=== PATIENT | female | born 1985 | race Caucasian/White ===

== ENCOUNTER 2019-09-14 17:59 | Emergency (ER) | payer BC ==
--- NOTE | 2019-09-14 18:47 | EDM.PDOC ---
ED HPI GENERAL MEDICAL PROBLEM - General Chief Complaint: Behavioral/Psych Stated Complaint: ANXIETY Time Seen by Provider: 09/14/19 18:08 Source of Information: Reports: Patient History Limitations: Reports: No Limitations - History of Present Illness INITIAL COMMENTS - FREE TEXT/NARRATIVE: HISTORY AND PHYSICAL: History of present illness: Patient is a 34-year-old female who presents to the ED today for concern of medication refill for anxiety. Patient states she was seen in [place] on and was given 10 of Ativan and 45 of alprazolam. Patient states she has taken nearly all of the Ativan but does have 1 pill left and is only taken a few pills of the alprazolam. Patient states the Ativan does not seem to be helping her anxiety and was hoping to get a refill of Ativan. Patient states she has an appointment with her primary care provider on the of this month but is unsure with who and at what time. Patient states she hopes to get a prescription to tide her over until she has an appointment on the with her primary care provider. Patient denies any other symptoms or concerns. Patient denies fever, chills, chest pain, shortness of breath, or cough. Denies headache, neck stiff ness, change in vision, syncope, or near syncope. Denies nausea, vomiting, abdominal pain, diarrhea, constipation, or dysuria. Has not noted any blood in urine or stool. Patient has been eating and drinking appropriately. Review of systems: As per history of present illness and below otherwise all systems reviewed and negative. Past medical history: As per history of present illness and as reviewed below otherwise noncontributory. Surgical history: As per history of present illness and as reviewed below otherwise noncontributory. Social history: See social history for further information Family history: As per history of present illness and as reviewed below otherwise noncontributory. Physical exam: General: Patient is alert, oriented, and in no acute distress. Patient sitting comfortably on exam table and tearful on exam. HEENT: Atraumatic, normocephalic, pupils equal and reactive bilaterally, negative for conjunctival pallor or scleral icterus, mucous membranes moist, TMs normal bilaterally, throat clear, neck supple, nontender, trachea midline. No drooling or trismus noted. No meningeal signs. No hot potato voice noted. Lungs: Clear to auscultation, breath sounds equal bilaterally, chest nontender. Heart: S1S2, regular rate and rhythm without overt murmur Abdomen: Soft, nondistended, nontender. Negative for masses or hepatosplenomegaly. Negative for costovertebral tenderness. Pelvis: Stable nontender. Genitourinary: Deferred. Rectal: Deferred. Skin: Intact, warm, dry. No lesions or rashes noted. Extremities: Atraumatic, negative for cords or calf pain. Neurovascular unremarkable. Neuro: Awake, alert, oriented. Cranial nerves II through XII unremarkable. Cerebellum unremarkable. Motor and sensory unremarkable throughout. Exam nonfocal. Notes: Discussed with patient that it does not seem that Ativan is working. In the ED today she still has a full bottle of alprazolam available to her to use for anxiety. Discussed with patient that I will not be refilling these medications at this time as she already has a full RX of Xanax available to her, but I will place her on expedited follow-up list to be seen sooner by primary care. Patient was placed on expedited follow-up list for primary care. Discussed importance for follow-up with a primary care provider. Voices understanding and is agreeable to plan of care. Denies any further questions or concerns at this time. Diagnostics: None (offered labwork, EKG, and imaging to assess anxiety but patient declines) Therapeutics: None Prescription: None Impression: Anxiety Encounter for medication refill Plan: 1. You have been placed on the expedited follow up list with primary care. Follow-up with a primary care provider as discussed. 2. Use the Xanax and remaining Ativan you already have prescribed to you as directed. 3. Return to the ED as needed and as discussed. Definitive disposition and diagnosis as appropriate pending reevaluation and review of above. - Related Data Allergies Allergy/AdvReac Type Severity Reaction Status Date / Time hydrocodone Allergy Swelling Verified 09/14/19 18:10 tramadol Allergy Swelling Verified 09/14/19 18:10 Home Meds: Home Meds ALPRAZolam [Xanax] 0.5 mg PO ASDIRECTED PRN 09/14/19 [History] Albuterol Sulfate [Proair Hfa] 2 puff INH ASDIRECTED PRN 09/14/19 [History] LORazepam 0.5 mg PO ASDIRECTED PRN 09/14/19 [History] Topiramate [Topamax] 100 mg PO BID 09/14/19 [History] tiZANidine [Zanaflex] 4 mg PO BEDTIME 09/14/19 [History] Past Medical History - Infectious Disease History Infectious Disease History: Reports: Chicken Pox - Past Surgical History HEENT Surgical History: Reports: Adenoidectomy, Myringotomy w Tube(s), Tonsillectomy Female Surgical History: Reports: D&C, Hysterectomy Musculoskeletal Surgical History: Reports: Other (See Below) Other Musculoskeletal Surgeries/Procedures:: left knee Social & Family History - Family History Family Medical History: Noncontributory - Tobacco Use Smoking Status *Q: Never Smoker - Caffeine Use Caffeine Use: Reports: Soda - Recreational Drug Use Recreational Drug Use: No ED ROS GENERAL - Review of Systems Review Of Systems: Comprehensive ROS is negative, except as noted in HPI. ED EXAM, GENERAL - Physical Exam Exam: See Below (see dictation) Course - Vital Signs Last Recorded V/S: Last Vital Signs Temp 97.8 F 09/14/19 18:14 Pulse 96 09/14/19 18:14 Resp 20 09/14/19 18:14 BP 123/83 09/14/19 18:14 Pulse Ox 96 09/14/19 18:14 - Orders/Labs/Meds Orders: Active Orders 24 hr Category Date Time Status Communication Order [RC] STAT Care 09/14/19 18:42 Ordered Departure - Departure Time of Disposition: 18:44 Disposition: Home, Self-Care 01 Clinical Impression: Anxiety, Encounter for medication refill - Discharge Information Referrals: PCP,Not In Area [Primary Care Provider] - Additional Instructions: The following information is given to patients seen in the emergency department who are being discharged to home. This information is to outline your options for follow-up care. We provide all patients seen in our emergency department with a follow-up referral. The need for follow-up, as well as the timing and circumstances, are variable depending upon the specifics of your emergency department visit. If you don't have a primary care physician on staff, we will provide you with a referral. We always advise you to contact your personal physician following an emergency department visit to inform them of the circumstance of the visit and for follow-up with them and/or the need for any referrals to a consulting specialist. The emergency department will also refer you to a specialist when appropriate. This referral assures that you have the opportunity for follow-up care with a specialist. All of these measure are taken in an effort to provide you with optimal care, which includes your follow-up. Under all circumstances we always encourage you to contact your private physician who remains a resource for coordinating your care. When calling for follow-up care, please make the office aware that this follow-up is from your recent emergency room visit. If for any reason you are refused follow-up, please contact the [facility] Emergency Department at and asked to speak to the emergency department charge nurse. [facility] [address] [place] [id number] [facility] [address] [place] [id number] 1. You have been placed on the expedited follow up list with primary care. Follow-up with a primary care provider as discussed. 2. Use the Xanax and remaining Ativan you already have prescribed to you as directed. 3. Return to the ED as needed and as discussed. Sepsis Event Note - Evaluation Sepsis Screening Result: No Definite Risk - Focused Exam Vital Signs: Vital Signs Temp Pulse Resp BP Pulse Ox 09/14/19 18:14 97.8 F 96 20 123/83 96 Date Exam was Performed: 09/14/19 Time Exam was Performed: 18:42 - My Orders Last 24 Hours: My Active Orders 09/14/19 18:42 Communication Order [RC] STAT - Assessment/Plan Last 24 Hours: My Active Orders 09/14/19 18:42 Communication Order [RC] STAT
== END 2019-09-14 19:01 | disposition home or self-care (01) ==
LOC: MW.ED 17:59
DX: F41.9 Anxiety disorder, unspecified (principal); Z76.0 Encounter for issue of repeat prescription; Z88.5 Allergy status to narcotic agent; Z79.899 Other long term (current) drug therapy
CPT/HCPCS: 99283

== ENCOUNTER 2019-11-16 02:23 | Emergency (ER) | payer BC ==
[2019-11-16] MEDS ORDERED: Ondansetron 4 MG Tab.DIS PO ONE ×2 (02:43→03:44)
--- NOTE | 2019-11-16 03:48 | EDM.PDOC ---
ED HPI GENERAL MEDICAL PROBLEM - General Chief Complaint: Gastrointestinal Problem Stated Complaint: VOMITTING, STOMACH PAIN Time Seen by Provider: 11/16/19 02:31 Source of Information: Reports: Patient History Limitations: Reports: No Limitations - History of Present Illness INITIAL COMMENTS - FREE TEXT/NARRATIVE: 34-year-old female presents with 10-hour history of nausea vomiting and loose stools. Patient reports 7 rounds of nonbilious nonbloody emesis and 5 rounds of loose stools. Patient has a sick contact in her spouse who had similar symptoms about 5 days ago lasting several days. Patient denies any other significant symptoms. She did try to take Phenergan at home by mouth but she kept throwing it up but it did not seem be effective. Patient denies any fever , chills, chest pain, shortness of breath, confusion, weakness, numbness, vision changes. - Related Data Allergies Allergy/AdvReac Type Severity Reaction Status Date / Time hydrocodone Allergy Swelling Verified 11/16/19 02:40 tramadol Allergy Swelling Verified 11/16/19 02:40 Home Meds: Home Meds Topiramate [Topamax] 100 mg PO QAM 09/14/19 [History] tiZANidine [Zanaflex] 4 mg PO BEDTIME PRN 09/14/19 [History] Ondansetron [Ondansetron ODT] 4 mg PO Q6H PRN #10 tab.rapdis 11/16/19 [Rx] Promethazine HCl 12.5 mg RC Q6HR PRN #4 supp.rect 11/16/19 [Rx] Topiramate [Topamax] 200 mg PO QPM 11/16/19 [History] Past Medical History Respiratory History: Reports: Asthma Genitourinary History: Reports: None Neurological History: Reports: Migraines Psychiatric History: Reports: Anxiety - Infectious Disease History Infectious Disease History: Reports: Chicken Pox - Past Surgical History HEENT Surgical History: Reports: Adenoidectomy, Myringotomy w Tube(s), Tonsillectomy Respiratory Surgical History: Reports: None Female Surgical History: Reports: D&C, Hysterectomy Neurological Surgical History: Reports: None Musculoskeletal Surgical History: Reports: Other (See Below) Other Musculoskeletal Surgeries/Procedures:: left knee Social & Family History - Family History Family Medical History: Noncontributory - Tobacco Use Smoking Status *Q: Never Smoker Second Hand Smoke Exposure: No - Caffeine Use Caffeine Use: Reports: Soda - Recreational Drug Use Recreational Drug Use: No ED ROS GENERAL - Review of Systems Review Of Systems: Comprehensive ROS is negative, except as noted in HPI. ED EXAM, GENERAL - Physical Exam Exam: See Below Free Text/Narrative:: General: No acute distress. Comfortable. Heent: Examination revealed no pallor, no icterus, no lymphadenopathy. The patient has normal posterior pharynx, moist mucous membranes. Neck: Supple. No JVD. No rigidity. Heart: Normal rate. Reg rhythm. No murmurs appreciated. Lungs: Bilaterally clear to auscultation. No focal findings. Abdomen: Obese. Nontender, non-distended, soft, no CVA tenderness. Neuro: Pt is moving all four extremities. EOMI. PERRL. Normal speech. Skin: Exposed areas appeared normally perfused, warm, normal color with no meaningful rashes or lesions. Extremities: Peripheral examination revealed no pedal edema. Peripheral pulses were 2+. Course - Vital Signs Text/Narrative:: Much better after medication. Taking p.o. Will send home with rectal Phenergan. Return precautions for dehydration. Consistent with related vomiting secondary to the numerous stools and also the sick contact history. Last Recorded V/S: Last Vital Signs Temp 96.3 F L 11/16/19 02:29 Pulse 118 H 11/16/19 04:14 Resp 18 11/16/19 04:14 BP 125/82 11/16/19 04:14 Pulse Ox 95 11/16/19 04:14 - Orders/Labs/Meds Meds: Medications Discontinued Medications Generic Name Dose Route Start Last Admin Trade Name Jarred PRN Reason Stop Dose Admin Haloperidol Lactate 3 mg 11/16/19 04:32 11/16/19 04:43 Haldol IM 11/16/19 04:33 3 mg ONETIME ONE Administration Ondansetron HCl 4 mg 11/16/19 02:43 11/16/19 02:50 Zofran Odt PO 11/16/19 02:44 4 mg ONETIME ONE Administration Ondansetron HCl 4 mg 11/16/19 03:44 11/16/19 03:48 Zofran Odt PO 11/16/19 03:45 4 mg ONETIME ONE Administration Departure - Departure Time of Disposition: 05:00 Disposition: DC/[facility] 05 Condition: Good Clinical Impression: Vomiting - Discharge Information Prescriptions: Promethazine HCl 12.5 mg RC Q6HR PRN #4 supp.rect PRN Reason: Nausea/Vomiting Ondansetron [Ondansetron ODT] 4 mg PO Q6H PRN #10 tab.rapdis PRN Reason: Nausea/Vomiting Referrals: PCP,Not In Area [Ordering Only Provider] - Forms: ED Department Discharge Additional Instructions: Take your Phenergan as directed. Maintain hydration. Return to emergency if you are unable to keep down fluids. The following information is given to patients seen in the emergency department who are being discharged to home. This information is to outline your options for follow-up care. We provide all patients seen in our emergency department with a follow-up referral. The need for follow-up, as well as the timing and circumstances, are variable depending upon the specifics of your emergency department visit. If you don't have a primary care physician on staff, we will provide you with a referral. We always advise you to contact your personal physician following an emergency department visit to inform them of the circumstance of the visit and for follow-up with them and/or the need for any referrals to a consulting specialist. The emergency department will also refer you to a specialist when appropriate. This referral assures that you have the opportunity for follow-up care with a specialist. All of these measure are taken in an effort to provide you with optimal care, which includes your follow-up. Under all circumstances we always encourage you to contact your private physician who remains a resource for coordinating your care. When calling for follow-up care, please make the office aware that this follow-up is from your recent emergency room visit. If for any reason you are refused follow-up, please contact the [facility] Emergency Department at and asked to speak to the emergency department charge nurse. Sepsis Event Note - Evaluation Sepsis Screening Result: No Definite Risk - Focused Exam Vital Signs: Vital Signs Temp Pulse Resp BP Pulse Ox 11/16/19 04:14 118 H 18 125/82 95 11/16/19 02:29 96.3 F L 122 H 19 149/105 H 96 Date Exam was Performed: 11/16/19 Time Exam was Performed: 05:16
[2019-11-16] MEDS ORDERED: Haloperidol Lactate 5 MG/ML SDV IM ONE (04:32)
== END 2019-11-16 05:38 | disposition home or self-care (01) ==
LOC: MW.ED 02:23
DX: R11.2 Nausea with vomiting, unspecified (principal); J45.909 Unspecified asthma, uncomplicated; G43.909 Migraine, unspecified, not intractable, without status migrainosus; Z79.899 Other long term (current) drug therapy; Z88.5 Allergy status to narcotic agent
CPT/HCPCS: 96372; 99284; A9270; J1630

== ENCOUNTER 2019-11-23 13:24 | Emergency (ER) | payer BC ==
--- NOTE | 2019-11-23 13:50 | EDM.PDOC ---
ED HPI GENERAL MEDICAL PROBLEM - General Chief Complaint: General Stated Complaint: FELL HIT HEAD AND SHOULDER Time Seen by Provider: 11/23/19 13:50 Source of Information: Reports: Patient History Limitations: Reports: No Limitations - History of Present Illness INITIAL COMMENTS - FREE TEXT/NARRATIVE: HISTORY AND PHYSICAL: History of present illness: Patient is a 34-year-old female presents to the ED with complaint of head injury. Patient states she fell off her horse as she was trying to mount him just prior to arrival to the ED. Patient states she fell on her left side landing on her left shoulder and hitting her head. She states she did not lose consciousness but hit hard enough that her glasses flew off. She is complaining of pain on the left side of her head, left neck, and left shoulder. She denies numbness or tingling on to her upper extremities. She denies vomiting but states she has been dizzy. Review of systems: As per history of present illness and below otherwise all systems reviewed and negative. Past medical history: As per history of present illness and as reviewed below otherwise noncontributory. Surgical history: As per history of present illness and as reviewed below otherwise noncontributory. Social history: No reported history of drug or alcohol abuse. Family history: As per history of present illness and as reviewed below otherwise noncontributory. Physical exam: General: Patient sitting comfortably in no acute distress and nontoxic appearing HEENT: Atraumatic, normocephalic, pupils reactive, negative for conjunctival pallor or scleral icterus, mucous membranes moist, throat clear, neck supple, nontender, trachea midline. No meningeal signs. Lungs: Clear to auscultation, breath sounds equal bilaterally, chest nontender. Heart: S1S2, regular, negative for clicks, rubs, or overt murmur. Abdomen: Soft, nondistended, nontender. Negative for masses or hepatosplenomegaly. Negative for costovertebral tenderness. No rigidity, rebound , guarding. Pelvis: Stable nontender. Genitourinary: Deferred. Rectal: Deferred. Spine: No vertebral tenderness or step offs to palpation. Left cervical paraspinal tenderness to palpation. Extremities: Atraumatic, negative for cords or calf pain. Neurovascular unremarkable. Neuro: Awake, alert, oriented. Cranial nerves II through XII unremarkable. Cerebellum unremarkable. Motor and sensory unremarkable throughout. Exam nonfocal. Notes: Diagnostics: Head CT w/o, cervical CT w/o, left shoulder x-ray Therapeutics: Toradol 60mg IM Left arm sling Prescriptions: none Impression: Head injury, left shoulder pain Plan: 1. Ice and motrin or tylenol as needed 2. Follow up with primary care provider, please call the number provided to schedule an appointment 3. Return to ED as needed as discussed Definitive disposition and diagnosis as appropriate pending reevaluation and review of above. left shouler Pain Score (Numeric/FACES): 9 - Related Data Allergies Allergy/AdvReac Type Severity Reaction Status Date / Time hydrocodone Allergy Swelling Verified 11/16/19 02:40 tramadol Allergy Swelling Verified 11/16/19 02:40 Home Meds: Home Meds Topiramate [Topamax] 100 mg PO QAM 09/14/19 [History] tiZANidine [Zanaflex] 4 mg PO BEDTIME PRN 09/14/19 [History] Topiramate [Topamax] 200 mg PO QPM 11/16/19 [History] DULoxetine HCl [Cymbalta] 11/23/19 [History] Esomeprazole Magnesium [Nexium] 11/23/19 [History] Past Medical History Respiratory History: Reports: Asthma Genitourinary History: Reports: None Neurological History: Reports: Migraines Psychiatric History: Reports: Anxiety - Infectious Disease History Infectious Disease History: Reports: Chicken Pox - Past Surgical History HEENT Surgical History: Reports: Adenoidectomy, Myringotomy w Tube(s), Tonsillectomy Respiratory Surgical History: Reports: None Female Surgical History: Reports: D&C, Hysterectomy Neurological Surgical History: Reports: None Musculoskeletal Surgical History: Reports: Other (See Below) Other Musculoskeletal Surgeries/Procedures:: left knee Social & Family History - Family History Family Medical History: Noncontributory - Tobacco Use Smoking Status *Q: Never Smoker - Caffeine Use Caffeine Use: Reports: Soda - Recreational Drug Use Recreational Drug Use: No ED ROS GENERAL - Review of Systems Review Of Systems: Comprehensive ROS is negative, except as noted in HPI. ED EXAM, GENERAL - Physical Exam Exam: See Below (see dictation) Course - Vital Signs Last Recorded V/S: Last Vital Signs Temp 98.4 F 11/23/19 13:42 Pulse 100 11/23/19 13:42 Resp 18 03/19/20 13:42 BP 141/86 H 11/23/19 13:42 Pulse Ox 97 11/23/19 13:42 - Orders/Labs/Meds Orders: Active Orders 24 hr Category Date Time Status Ketorolac [Toradol] Med 11/23/19 14:55 Once 60 mg IM ONETIME ONE DME for Discharge [COMM] Stat Oth 11/23/19 14:55 Ordered Medication Orders Ketorolac Tromethamine (Toradol) 60 mg IM ONETIME ONE Stop: 11/23/19 14:56 Meds: Medications Generic Name Dose Route Start Last Admin Trade Name Jarred PRN Reason Stop Dose Admin Ketorolac Tromethamine 60 mg 11/23/19 14:55 Toradol IM 11/23/19 14:56 ONETIME ONE Departure - Departure Time of Disposition: 14:51 Disposition: Home, Self-Care 01 Condition: Good Clinical Impression: Head injury, Shoulder pain, left - Discharge Information Referrals: Alma Zuniga PA [Primary Care Provider] - Forms: ED Department Discharge Additional Instructions: The following information is given to patients seen in the emergency department who are being discharged to home. This information is to outline your options for follow-up care. We provide all patients seen in our emergency department with a follow-up referral. The need for follow-up, as well as the timing and circumstances, are variable depending upon the specifics of your emergency department visit. If you don't have a primary care physician on staff, we will provide you with a referral. We always advise you to contact your personal physician following an emergency department visit to inform them of the circumstance of the visit and for follow-up with them and/or the need for any referrals to a consulting specialist. The emergency department will also refer you to a specialist when appropriate. This referral assures that you have the opportunity for follow-up care with a specialist. All of these measure are taken in an effort to provide you with optimal care, which includes your follow-up. Under all circumstances we always encourage you to contact your private physician who remains a resource for coordinating your care. When calling for follow-up care, please make the office aware that this follow-up is from your recent emergency room visit. If for any reason you are refused follow-up, please contact the [facility] Emergency Department at and asked to speak to the emergency department charge nurse. [facility]ORA[facility] [address] [place] [address] [facility] [address] [place] [address] 1. Ice and motrin or tylenol as needed 2. Follow up with primary care provider, please call the number provided to schedule an appointment 3. Return to ED as needed as discussed Sepsis Event Note - Evaluation Sepsis Screening Result: No Definite Risk - Focused Exam Vital Signs: Vital Signs Temp Pulse Resp BP Pulse Ox 11/23/19 13:42 98.4 F 100 18 141/86 H 97 Date Exam was Performed: 11/23/19 Time Exam was Performed: 14:56 - My Orders Last 24 Hours: My Active Orders 11/23/19 14:55 Ketorolac [Toradol] 60 mg IM ONETIME ONE DME for Discharge [COMM] Stat - Assessment/Plan Last 24 Hours: My Active Orders 11/23/19 14:55 Ketorolac [Toradol] 60 mg IM ONETIME ONE DME for Discharge [COMM] Stat
--- NOTE | 2019-11-23 14:39 | CT ---
Head CT Technique: Multiple axial sections through the brain were obtained. Intravenous contrast was not utilized. Comparison: No prior intracranial imaging is available. Findings: Ventricles along with basal cisterns and sulci over the convexities are within normal limits for the patient's age. No abnormal parenchymal densities are seen. No evidence of intracranial hemorrhage. No midline shift or mass effect is seen. No acute calvarial abnormality is appreciated on bone window settings. Visualized paranasal sinuses and mastoid sinuses are clear. Impression: 1. Nothing acute is appreciated on noncontrast head CT exam. Diagnostic code #1 Study was dictated in MDT
--- NOTE | 2019-11-23 14:49 | CT ---
CT cervical spine Technique: Multiple axial sections were obtained from above C1 inferiorly to the mid T4 level. Reconstructed sagittal and coronal images were reviewed. Findings: Vertebral body heights and disc spaces are preserved. Vertebral bodies and posterior arches are intact. No subluxation or fracture is appreciated. No bony central or bony neural foraminal stenosis is seen. Impression: 1. Nothing acute is appreciated on CT study of the cervical spine. Diagnostic code #1 Study was dictated in MDT
--- NOTE | 2019-11-23 14:49 | CR ---
Left shoulder: 3 views left shoulder were obtained. Comparison: No previous left shoulder study is available. Glenohumeral joint and acromioclavicular joint appears unremarkable. No fracture, dislocation or other bony abnormality is identified. Impression: 1. No abnormality is identified on 3 view left shoulder study. Diagnostic code #1 Study was dictated in MDT
[2019-11-23] MEDS ORDERED: Ketorolac 60 MG/2 ML SDV IM ONE (14:55)
== END 2019-11-23 15:20 | disposition home or self-care (01) ==
LOC: MW.ED 13:24
DX: S09.90XA Unspecified injury of head, initial encounter (principal); M25.512 Pain in left shoulder; F41.9 Anxiety disorder, unspecified; J45.909 Unspecified asthma, uncomplicated; Z88.5 Allergy status to narcotic agent; Z79.899 Other long term (current) drug therapy; V80.010A Animal-rider injured by fall from or being thrown from horse in noncollision accident, initial encounter
CPT/HCPCS: 70450; 72125; 73030; 96372; 99284; J1885

== ENCOUNTER 2019-11-28 10:52 | Emergency (ER) | payer BC ==
[2019-11-28] MEDS ORDERED: Sodium Chloride 0.9% 1,000 ML IV ONE (11:14)
[2019-11-28] MEDS ORDERED: Ondansetron 4 MG/2 ML SDV IVPUSH ONE (11:14)
[2019-11-28] MEDS ORDERED: Metoclopramide 10 MG/2 ML SDV IV ONE (11:14)
[2019-11-28] MEDS ORDERED: diphenhydrAMINE 50 MG/ML SDV IVPUSH ONE (11:14)
[2019-11-28] MEDS ORDERED: traMADol 50 MG Tab PO ONE (11:23)
--- NOTE | 2019-11-28 11:27 | EDM.PDOC ---
ED HPI GENERAL MEDICAL PROBLEM - General Chief Complaint: Headache Stated Complaint: MIGRAINE Time Seen by Provider: 11/28/19 10:55 Source of Information: Reports: Patient History Limitations: Reports: No Limitations - History of Present Illness INITIAL COMMENTS - FREE TEXT/NARRATIVE: PEDS HISTORY AND PHYSICAL: History of present illness: Patient is a 34-year-old female who presents to the ED today with concern of a migraine headache since this morning. Patient states she has a history of migraines and has been receiving Botox injections for them. Patient states this morning she started having a migraine and has taken 2 Maxalt, 800 mg ibuprofen, 25mg Benadryl, and Phenergan and states she is only had mild relief of her migraine. Patient states that the migraine today is typical of her usual migraines and is behind her eyes and throbbing with sensitivity to the light. Patient denies any head injury or trauma. Patient states she has a history of total hysterectomy. Patient denies fever, chills, chest pain, shortness of breath, or cough. Denies neck stiff ness, change in vision, syncope, or near syncope. Denies nausea, vomiting, abdominal pain, diarrhea, constipation, or dysuria. Has not noted any blood in urine or stool. Patient has been eating and drinking appropriately. Review of systems: As per history of present illness and below otherwise all systems reviewed and negative. Past medical history: As per history of present illness and as reviewed below otherwise noncontributory. Surgical history: As per history of present illness and as reviewed below otherwise noncontributory. Social history: No reported history of drug or alcohol abuse. Family history: As per history of present illness and as reviewed below otherwise noncontributory. Physical exam: General: Patient is alert, oriented, and in no acute distress. Nontoxic and nonfocal. Patient laying comfortably on exam table. HEENT: Atraumatic, normocephalic, pupils reactive, negative for conjunctival pallor or scleral icterus, mucous membranes moist, throat clear, neck supple, nontender, trachea midline. TMs normal bilaterally, no cervical adenopathy or nuchal rigidity. Lungs: Clear to auscultation, breath sounds equal bilaterally, chest nontender. Heart: S1S2, regular rate and rhythm, no overt murmurs Abdomen: Soft, nondistended, nontender. Negative for masses or hepatosplenomegaly. Normal abdominal bowel sounds. Pelvis: Stable nontender. Genitourinary: Deferred. Rectal: Deferred. Extremities: Atraumatic, full range of motion without defects or deficits. Neurovascular unremarkable. Neuro: Awake, alert, and age appropriate. Cranial nerves II through XII unremarkable. Cerebellum unremarkable. Motor and sensory unremarkable throughout. Exam nonfocal. Skin: Normal turgor, no overt rash or lesions Notes: Patient expresses improvement of symptoms today in the ED. Discussed the importance of follow up with a primary care provider. Voices understanding and is agreeable to plan of care. Denies any further questions or concerns at this time. Diagnostics: None Therapeutics: Tramadol, NS, Benadryl, Reglan, Zofran Prescription: None Impression: Migraine headache, improved Plan: 1. You can take your at home migraine medications as prescribed to you. You can also alternate ibuprofen and Tylenol as directed for pain and discomfort. 2. Follow-up with a primary care provider as discussed. Return to the ED as needed and as discussed. 3. The medication you received today does cause drowsiness, so do not drive for the remaining day. Definitive disposition and diagnosis as appropriate pending reevaluation and review of above. headache Pain Score (Numeric/FACES): 9 - Related Data Allergies Allergy/AdvReac Type Severity Reaction Status Date / Time hydrocodone Allergy Swelling Verified 11/28/19 11:02 tramadol Allergy Swelling Verified 11/28/19 11:02 Home Meds: Home Meds Topiramate [Topamax] 100 mg PO QAM 09/14/19 [History] tiZANidine [Zanaflex] 4 mg PO BEDTIME PRN 09/14/19 [History] Topiramate [Topamax] 200 mg PO QPM 11/16/19 [History] DULoxetine HCl [Cymbalta] 60 mg PO DAILY 11/23/19 [History] Esomeprazole Magnesium [Nexium] 20 mg PO DAILY 11/23/19 [History] Rizatriptan Benzoate [Rizatriptan] 10 mg PO DAILY 11/28/19 [History] Past Medical History Respiratory History: Reports: Asthma Genitourinary History: Reports: None Neurological History: Reports: Migraines Psychiatric History: Reports: Anxiety - Infectious Disease History Infectious Disease History: Reports: Chicken Pox - Past Surgical History HEENT Surgical History: Reports: Adenoidectomy, Myringotomy w Tube(s), Tonsillectomy Respiratory Surgical History: Reports: None Female Surgical History: Reports: D&C, Hysterectomy Neurological Surgical History: Reports: None Musculoskeletal Surgical History: Reports: Other (See Below) Other Musculoskeletal Surgeries/Procedures:: left knee Social & Family History - Family History Family Medical History: Noncontributory - Tobacco Use Smoking Status *Q: Never Smoker - Caffeine Use Caffeine Use: Reports: Soda - Recreational Drug Use Recreational Drug Use: No ED ROS GENERAL - Review of Systems Review Of Systems: Comprehensive ROS is negative, except as noted in HPI. ED EXAM, GENERAL - Physical Exam Exam: See Below (see dictation) Course - Vital Signs Last Recorded V/S: Last Vital Signs Temp 97.2 F 11/28/19 11:04 Pulse 71 11/28/19 11:38 Resp 18 11/28/19 11:38 BP 142/90 H 11/28/19 11:04 Pulse Ox 98 11/28/19 11:38 - Orders/Labs/Meds Meds: Medications Discontinued Medications Generic Name Dose Route Start Last Admin Trade Name Jarred PRN Reason Stop Dose Admin Diphenhydramine HCl 25 mg 11/28/19 11:14 11/28/19 11:32 Benadryl IVPUSH 11/28/19 11:15 25 mg ONETIME ONE Administration Sodium Chloride 1,000 mls @ 999 mls/hr 11/28/19 11:14 11/28/19 11:31 Normal Saline IV 11/28/19 12:14 999 mls/hr STAT ONE Administration Metoclopramide HCl 10 mg 11/28/19 11:14 11/28/19 11:33 Reglan IV 11/28/19 11:15 10 mg ONETIME ONE Administration Ondansetron HCl 4 mg 11/28/19 11:14 11/28/19 11:32 Zofran IVPUSH 11/28/19 11:15 4 mg ONETIME ONE Administration Tramadol HCl 50 mg 11/28/19 11:23 11/28/19 11:35 Ultram PO 11/28/19 11:24 50 mg ONETIME ONE Administration Departure - Departure Time of Disposition: 12:56 Disposition: Home, Self-Care 01 Clinical Impression: Migraine - Discharge Information Referrals: Alma Zuniga PA [Primary Care Provider] - Forms: ED Department Discharge Additional Instructions: The following information is given to patients seen in the emergency department who are being discharged to home. This information is to outline your options for follow-up care. We provide all patients seen in our emergency department with a follow-up referral. The need for follow-up, as well as the timing and circumstances, are variable depending upon the specifics of your emergency department visit. If you don't have a primary care physician on staff, we will provide you with a referral. We always advise you to contact your personal physician following an emergency department visit to inform them of the circumstance of the visit and for follow-up with them and/or the need for any referrals to a consulting specialist. The emergency department will also refer you to a specialist when appropriate. This referral assures that you have the opportunity for follow-up care with a specialist. All of these measure are taken in an effort to provide you with optimal care, which includes your follow-up. Under all circumstances we always encourage you to contact your private physician who remains a resource for coordinating your care. When calling for follow-up care, please make the office aware that this follow-up is from your recent emergency room visit. If for any reason you are refused follow-up, please contact the [facility] Emergency Department at and asked to speak to the emergency department charge nurse. [facility] [address] [place] [id number] [place] [address] 1. You can take your at home migraine medications as prescribed to you. You can also alternate ibuprofen and Tylenol as directed for pain and discomfort. 2. Follow-up with a primary care provider as discussed. Return to the ED as needed and as discussed. 3. The medication you received today does cause drowsiness, so do not drive for the remaining day. Sepsis Event Note - Evaluation Sepsis Screening Result: No Definite Risk - Focused Exam Vital Signs: Vital Signs Temp Pulse Resp BP Pulse Ox 11/28/19 11:38 71 18 98 11/28/19 11:04 97.2 F 85 18 142/90 H 98 Date Exam was Performed: 11/28/19 Time Exam was Performed: 12:56
== END 2019-11-28 13:17 | disposition home or self-care (01) ==
LOC: MW.ED 10:52
DX: G43.909 Migraine, unspecified, not intractable, without status migrainosus (principal)
CPT/HCPCS: 96361; 96374; 96375; 99283; A9270; J1200; J2405; J2765; J7030

== ENCOUNTER 2020-02-07 09:00 | Emergency (ER) | payer BC ==
[2020-02-07] MEDS ORDERED: methylPREDNISolone Sodium Succinate 125 MG/2 ML SDV IVPUSH ONE (09:29)
[2020-02-07] MEDS ORDERED: Morphine 4 MG/ML Syringe IVPUSH ONE (09:29)
[2020-02-07] MEDS ORDERED: Sodium Chloride 0.9% 1,000 ML IV ONE (09:29)
[2020-02-07] MEDS ORDERED: Ketorolac 15 MG/ML SDV IVPUSH ONE (09:29)
[2020-02-07] MEDS ORDERED: Acetaminophen 325 MG Tab PO ONE (09:29)
--- NOTE | 2020-02-07 09:35 | EDM.PDOC ---
ED [facility] GENERAL MEDICAL PROBLEM - General Chief Complaint: ENT Problem Stated Complaint: SWOLLEN LYMPH NODES IN NECK Time Seen by Provider: 02/07/20 09:01 - History of Present Illness INITIAL COMMENTS - FREE TEXT/NARRATIVE: HISTORY AND PHYSICAL: History of present illness: This 34-year-old female with a past medical history of BMI greater than 43 presents emergency department complaining of severe sore throat, lymphadenopathy in the neck causing pain with range of motion, and pain with swallowing. She reports that she went to an outside doctor and was seen and had a strep throat test which was negative. She was not started on antibiotics or steroids. She is concerned because she is having severe pain in her neck and it hurts with any range of motion. This is abnormal for her. Some slight subjective fevers otherwise normal. No difficulty controlling secretions. No other associated signs or symptoms. No other modifying, aggravating or alleviating factors. Review of systems: A 10-point review of systems, other than pertinent positives and negatives as stated per HPI, is otherwise negative. Past medical history: As per history of present illness and as reviewed below otherwise noncontributory. Surgical history: As per history of present illness and as reviewed below otherwise noncontributory. Social history: No reported history of drug or alcohol abuse. Family history: As per history of present illness and as reviewed below otherwise noncontributory. Physical exam: VITAL SIGNS: Reviewed. GENERAL: Appears to be in acute pain. Mild distress. HEAD: No signs of head trauma. EYES: Pupils are equal. Extraocular motions intact. EARS: Hearing grossly intact. MOUTH: Bilateral lymphadenopathy, some exudates. NECK: Bilateral lymphadenopathy up and down the neck. Some posterior adenopathy. No JVD. The patient does have a small rash on her chest. Pain with range of motion especially from side to side because it causes the lymphadenopathy to be painful. CHEST: Chest with clear breath sounds bilaterally. No wheezes, rales, or rhonchi. CARDIAC: Tachycardia. Regular rhythm. I do not appreciate a murmur. VASCULAR: Peripheral pulses normal and equal in all extremities. ABDOMEN: Soft, without detectable tenderness. No sign of distention. No rebound or guarding, and no masses palpated. MUSCULOSKELETAL: Good range of motion of all major joints. Extremities without clubbing, cyanosis or edema. NEUROLOGIC EXAM: Alert and oriented x 3. No focal sensory or motor deficits. Speech normal. Follows commands. PSYCHIATRIC: Mood normal. SKIN: Small petechial erythematous base rash. No purpura. Non-blanching. Initial Differential Diagnosis & Plan: Strep pharyngitis, mononucleosis, retropharyngeal abscess, leukemia, lymphoma, viral pharyngitis, adenitis I will obtain labs to include CBC, complete metabolic panel, Rose Marie-Leiva virus panel, mono spot test, give pain control and relief, treat her tachycardia with IV fluids and antipyretics. I do not feel a throat culture is warranted. If the patient is not feeling better after some therapy here I will obtain a CT of the neck soft tissue to rule out retropharyngeal abscess. Definitive disposition and diagnosis as appropriate pending reevaluation and review of above. Left Neck Pain Score (Numeric/FACES): 10 - Related Data Allergies Allergy/AdvReac Type Severity Reaction Status Date / Time hydrocodone Allergy Swelling Verified 02/07/20 09:10 tramadol Allergy Swelling Verified 02/07/20 09:10 Home Meds: Home Meds Topiramate [Topamax] 100 mg PO QAM 09/14/19 [History] tiZANidine [Zanaflex] 4 mg PO BEDTIME PRN 09/14/19 [History] Topiramate [Topamax] 200 mg PO QPM 11/16/19 [History] DULoxetine HCl [Cymbalta] 60 mg PO DAILY 11/23/19 [History] Esomeprazole Magnesium [Nexium] 20 mg PO DAILY 11/23/19 [History] Rizatriptan Benzoate [Rizatriptan] 10 mg PO DAILY 11/28/19 [History] Acetaminophen [Tylenol Extra Strength] 1,000 mg PO Q6HR PRN #60 tablet 02/07/20 [Rx] Acetaminophen [Tylenol Extra Strength] 1,000 mg PO Q6HR PRN #60 tablet 02/07/20 [Rx] Cefdinir [Omnicef] 300 mg PO BID #14 cap 02/07/20 [Rx] Diclofenac Potassium [Cataflam] 50 mg PO BID #60 tab 02/07/20 [Rx] Doxycycline [Vibramycin] 100 mg PO BID 7 Days #14 tab 02/07/20 [Rx] Ibuprofen [Motrin] 600 mg PO Q6H PRN #30 tab 02/07/20 [Rx] Omeprazole 40 mg PO QPM #30 capsule. 02/07/20 [Rx] Omeprazole 40 mg PO QPM #30 capsule. 02/07/20 [Rx] cephALEXin [Keflex] 500 mg PO QID 02/07/20 [History] predniSONE [Prednisone] 50 mg PO DAILY 5 Days #5 tablet 02/07/20 [Rx] Past Medical History Respiratory History: Reports: Asthma Genitourinary History: Reports: None Neurological History: Reports: Migraines Psychiatric History: Reports: Anxiety - Infectious Disease History Infectious Disease History: Reports: Chicken Pox - Past Surgical History HEENT Surgical History: Reports: Adenoidectomy, Myringotomy w Tube(s), Tonsillectomy Respiratory Surgical History: Reports: None Female Surgical History: Reports: D&C, Hysterectomy Neurological Surgical History: Reports: None Musculoskeletal Surgical History: Reports: Other (See Below) Other Musculoskeletal Surgeries/Procedures:: left knee Social & Family History - Family History Family Medical History: Noncontributory - Tobacco Use Smoking Status *Q: Never Smoker - Caffeine Use Caffeine Use: Reports: Soda - Recreational Drug Use Recreational Drug Use: No ED ROS ENT - Review of Systems Review Of Systems: Unable To Obtain (noted) Reason Not Obtained: noted ED EXAM, ENT - Physical Exam Exam: See Below (noted) Course - Vital Signs Last Recorded V/S: Last Vital Signs Temp 98.3 F 02/07/20 09:11 Pulse 74 02/07/20 10:48 Resp 17 02/07/20 10:48 BP 114/70 02/07/20 10:48 Pulse Ox 97 02/07/20 10:48 - Orders/Labs/Meds Labs: Laboratory Tests 02/07/20 02/07/20 02/07/20 Range/Units 09:50 09:50 09:50 WBC 10.04 (4.0-11.0) K/uL RBC 4.45 (4.30-5.90) M/uL Hgb 12.4 (12.0-16.0) g/dL Hct 38.1 (36.0-46.0) % MCV 85.6 (80.0-98.0) fL MCH 27.9 (27.0-32.0) pg MCHC 32.5 (31.0-37.0) g/dL RDW Std Deviation 41.0 (28.0-62.0) fl RDW Coeff of Harjinder 13 (11.0-15.0) % Plt Count 223 (150-400) K/uL MPV 10.30 (7.40-12.00) fL Neut % (Auto) 72.7 (48.0-80.0) % Lymph % (Auto) 20.0 (16.0-40.0) % [place] % (Auto) 5.7 (0.0-15.0) % Eos % (Auto) 1.4 (0.0-7.0) % Baso % (Auto) 0.2 (0.0-1.5) % Neut # (Auto) 7.3 H (1.4-5.7) K/uL Lymph # (Auto) 2.0 (0.6-2.4) K/uL [place] # (Auto) 0.6 (0.0-0.8) K/uL Eos # (Auto) 0.1 (0.0-0.7) K/uL Baso # (Auto) 0.0 (0.0-0.1) K/uL Nucleated RBC % 0.0 /100WBC Nucleated RBCs # 0 K/uL Sodium 139 (136-145) mmol/L Potassium 3.7 (3.5-5.1) mmol/L Chloride 106 (98-107) mmol/L Carbon Dioxide 22.9 (21.0-32.0) mmol/L BUN 8 (7.0-18.0) mg/dL Creatinine 0.8 (0.6-1.0) mg/dL Est Cr Clr Drug Dosing 79.11 mL/min Estimated GFR (MDRD) > 60.0 ml/min Glucose 95 (74-106) mg/dL Calcium 8.8 (8.5-10.1) mg/dL Total Bilirubin 0.4 (0.2-1.0) mg/dL AST 19 (15-37) IU/L ALT 27 (14-63) IU/L Alkaline Phosphatase 104 (46-116) U/L Total Protein 7.2 (6.4-8.2) g/dL Albumin 3.2 L (3.4-5.0) g/dL Globulin 4.0 (2.6-4.0) g/dL Albumin/Globulin Ratio 0.8 L (0.9-1.6) Monoscreen NEGATIVE (NEG) Meds: Medications Discontinued Medications Generic Name Dose Route Start Last Admin Trade Name Jarred PRN Reason Stop Dose Admin Acetaminophen 975 mg 02/07/20 09:29 02/07/20 09:41 Tylenol PO 02/07/20 09:30 975 mg NOW ONE Administration Sodium Chloride 1,000 mls @ 2,000 mls/hr 02/07/20 09:29 02/07/20 09:41 Normal Saline IV 02/07/20 09:58 2,000 mls/hr .Bolus ONE Administration Iopamidol 80 ml 02/07/20 11:53 02/07/20 11:54 Isovue Multipack-370 (76%) IVPUSH 02/07/20 11:54 80 ml ONETIME STA Administration Ketorolac Tromethamine 15 mg 02/07/20 09:29 02/07/20 09:41 Toradol IVPUSH 02/07/20 09:30 15 mg ONETIME ONE Administration Methylprednisolone Sodium Succinate 125 mg 02/07/20 09:29 02/07/20 09:41 Solu-Medrol IVPUSH 02/07/20 09:30 125 mg ONETIME ONE Administration Morphine Sulfate 4 mg 02/07/20 09:29 02/07/20 09:41 Morphine IVPUSH 02/07/20 09:30 4 mg ONETIME ONE Administration - Re-Assessments/Exams Free Text/Narrative Re-Assessment/Exam: 02/07/20 11:56 The patient responded well to therapy here in the emergency department. She has lymphadenitis on her CT scan without evidence of retropharyngeal abscess, peritonsillar abscess, or other infection. There are no space-occupying lesions. There is no drainable lesions. I will start the patient on oral antibiotics to include a high generation cephalosporin and atypical antibiotic coverage. I will also give the patient steroids for swelling and pain. My diagnostic impression: 1. Adenitis 2. Surrounding cellulitis of lymph nodes Departure - Departure Time of Disposition: 11:56 Disposition: Home, Self-Care 01 Clinical Impression: Adenitis, Cellulitis - Discharge Information *PRESCRIPTION DRUG MONITORING PROGRAM REVIEWED*: Not Applicable *COPY OF PRESCRIPTION DRUG MONITORING REPORT IN PATIENT KIRILL: Not Applicable Prescriptions: Acetaminophen [Tylenol Extra Strength] 1,000 mg PO Q6HR PRN #60 tablet PRN Reason: Pain Diclofenac Potassium [Cataflam] 50 mg PO BID #60 tab Omeprazole 40 mg PO QPM #30 capsule. predniSONE [Prednisone] 50 mg PO DAILY 5 Days #5 tablet Instructions: Cellulitis, Adult, [id number], Lymphangitis, Adult Referrals: Alma Zuniga PA [Primary Care Provider] - Forms: ED Department Discharge Additional Instructions: The following information is given to patients seen in the emergency department who are being discharged to home. This information is to outline your options for follow-up care. We provide all patients seen in our emergency department with a follow-up referral. The need for follow-up, as well as the timing and circumstances, are variable depending upon the specifics of your emergency department visit. If you don't have a primary care physician on staff, we will provide you with a referral. We always advise you to contact your personal physician following an emergency department visit to inform them of the circumstance of the visit and for follow-up with them and/or the need for any referrals to a consulting specialist. The emergency department will also refer you to a specialist when appropriate. This referral assures that you have the opportunity for follow-up care with a specialist. All of these measure are taken in an effort to provide you with optimal care, which includes your follow-up. Under all circumstances we always encourage you to contact your private physician who remains a resource for coordinating your care. When calling for follow-up care, please make the office aware that this follow-up is from your recent emergency room visit. If for any reason you are refused follow-up, please contact the [facility] Emergency Department at and asked to speak to the emergency department charge nurse. Thank you for coming to [facility] emergency department for your care today. It was Dr. Perez's pleasure to see you. Your CT scan shows that you have very swollen lymph nodes in your neck and some surrounding infection of 1 or 2 of them. It is important that we start you on antibiotics. We will also give you pain control. Please take the steroids as directed. When you take pain medicines plus steroids you need to protect your stomach from an ulcer or bleeding. This is why we have prescribed you omeprazole. You need to types of antibiotics. I recommend that you also take a probiotic. These are all available [id number]. You can also obtain active cultures by eating yogurt with active cultures. Any of these ways are acceptable. If you have worsening, cannot tolerate your medicines, or any other concerns please return to the emergency department. Sepsis Event Note - Evaluation Sepsis Screening Result: Possible Sepsis Risk - Focused Exam Vital Signs: Vital Signs Temp Pulse Resp BP Pulse Ox 02/07/20 10:48 74 17 114/70 97 02/07/20 09:11 98.3 F 104 H 18 118/77 97 Date Exam was Performed: 02/07/20 Time Exam was Performed: 11:55
[2020-02-07 10:47] LABS: BLOOD UREA NITROGEN,BUN 8 mg/dL (7.0-18.0); CARBON DIOXIDE,CO2 22.9 mmol/L (21.0-32.0); CHLORIDE,CL 106 mmol/L (98-107); GLUCOSE RANDOM 95 mg/dL (74-106); POTASSIUM,K 3.7 mmol/L (3.5-5.1); SODIUM,NA 139 mmol/L (136-145)
--- NOTE | 2020-02-07 11:44 | CT ---
CT neck Technique: Multiple axial sections through the neck were obtained. Intravenous contrast was utilized. Findings: Increased number of lymph nodes are seen within the neck. Largest lymph node measures 1.8 cm and is on the left side. Inflammatory change is seen around this lymph node which is located lateral to the perivascular space and medial to the sternocleidoastoid muscle. Findings presumably represent mild cellulitis. No other inflammatory change is seen. Visualized lung apices are clear. Thyroid gland is normal. Prevertebral soft tissues are normal. No parapharyngeal abscess is seen. Right and left globes that are seen appear symmetric. Epiglottis is normal. Bone window settings were reviewed which shows no acute osseous finding. Impression: 1. Increased number of lymph nodes as well as increased size of several lymph nodes. 2. Mild inflammatory change around an enlarged left-sided lymph node which is located lateral to the perivascular space and medial to the sternocleidomastoid muscle. This inflammatory change is most likely due to a nonspecific cellulitis. 3. No parapharyngeal abscess is seen. Prevertebral soft tissues are normal. Diagnostic code #3 This report was dictated in MDT
[2020-02-07] MEDS ORDERED: Iopamidol 755 MG/ML 500 ML Multipack Bottle IVPUSH STA (11:53)
== END 2020-02-07 12:13 | disposition home or self-care (01) ==
LOC: MW.ED 09:00
DX: I88.9 Nonspecific lymphadenitis, unspecified (principal); L03.221 Cellulitis of neck; J45.909 Unspecified asthma, uncomplicated; F41.9 Anxiety disorder, unspecified; G43.909 Migraine, unspecified, not intractable, without status migrainosus; Z88.5 Allergy status to narcotic agent; Z79.899 Other long term (current) drug therapy
CPT/HCPCS: 36415; 70491; 80053; 85025; 86308; 96374; 96375; 99284; A9270; J1885; J2270; J2930; J7030; Q9967; 99283